=== PATIENT | female | born 1955 | race Asian ===

== ENCOUNTER 2017-09-20 10:15 | Day surgery (SDC) | payer OTHER ==
[2017-09-20] MEDS ORDERED: PROPOFOL 40 ML (11:40)
[2017-09-20] MEDS ORDERED: LIDOCAINE 100 MG SYRINGE (11:40)
== END 2017-09-20 14:50 | disposition home or self-care (01) ==
LOC: GIL 10:15
DX: Z12.11 Encounter for screening for malignant neoplasm of colon (principal); K64.8 Other hemorrhoids; E11.9 Type 2 diabetes mellitus without complications; I10 Essential (primary) hypertension; E03.9 Hypothyroidism, unspecified
CPT/HCPCS: 45378; 82962